=== PATIENT | female | born 2000 | race Caucasian/White ===

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

== ENCOUNTER 2019-06-27 17:38 | Inpatient (IN) | payer OTHER ==
[~2019-06-27] VITALS: Ht 155 cm; Wt 65.0 kg
[~2019-06-27 17:38] MED LIST: DSS100 PO; FERR-89 PO; IBUP100O28 PO; PNV11TAB PO
[2019-06-27] MEDS ORDERED: OXYTOCIN 30 UNITS/LACT RINGERS 500 ML IV ONE ×2 (17:40→23:14)
[2019-06-27] MEDS ORDERED: RINGERS SOLUTION,LACTATED 1,000 ML IV PRN (17:40)
[2019-06-27] MEDS ORDERED: CITRIC ACID/SODIUM CITRATE 30 ML SOLUTION UDCUP PO PRN (17:45)
[2019-06-27] MEDS ORDERED: FentaNYL CITRATE-PF 100 MCG/2 ML VIAL IVP PRN (17:45)
[2019-06-27] MEDS ORDERED: AMPICILLIN SODIUM 2 GM/NS 100 ML IV ONE (17:45)
[2019-06-27] MEDS ORDERED: METOCLOPRAMIDE HCL 5 MG/ML 2 ML VIAL IVP PRN (17:45)
[2019-06-27 17:49] VITALS: BP 116/67
[2019-06-27] MEDS: RINGERS SOLUTION,LACTATED 1,000 ML IV SCH ×4 (18:46→19:56)
[2019-06-27 18:57] LABS: BASOPHILS % (AUTO) 0.2 % (0.0-2.0); EOSINOPHILS % (AUTO) 0.2 % (1.0-6.0); HEMATOCRIT 29.5 % (36-46); HEMOGLOBIN 9.7 g/dL (12.0-16.0); LYMPHOCYTES # (AUTO) 1.6 K/uL (1.0-4.8); LYMPHOCYTES % (AUTO) 23.9 % (22.0-44.0); MEAN CORPUSCULAR HEMOGLOBIN 25.6 pg (26.0-34.0); MEAN CORPUSCULAR HGB CONC 32.8 G/dL (31.0-37.0); MEAN CORPUSCULAR VOLUME 78 fL (80-100); MONOCYTES # (AUTO) 0.8 K/uL (0.1-1.0); MONOCYTES % (AUTO) 12.6 % (2.0-9.0); NEUTROPHILS # (AUTO) 4.2 K/uL (1.8-7.7); NEUTROPHILS % (AUTO) 63.1 % (40.0-70.0); PLATELET COUNT (AUTO) 197 K/uL (150-450); RED BLOOD CELL COUNT(AUTO) 3.78 MIL/uL (4.00-5.20)
[2019-06-27] MEDS ORDERED: INFLUENZA VIRUS VACCINE QVS 2019-20 (3YR+)/PF 60 MCG/0.5 ML SYRINGE IM ONE (19:15)
[2019-06-27] MEDS ORDERED: OXYGEN THERAPY IH SCH (20:00)
[2019-06-27] MEDS ORDERED: ROPIVACAINE HCL/PF 0.2% 100 ML ED ONE (20:07)
[2019-06-27 20:13] LABS: RAPID PLASMA REAGIN NONREACTIVE (NONREACTIVE)
[2019-06-27 20:25] LABS: RUBELLA SCREEN (IGG) IMMUNE (IMMUNE)
[2019-06-27] MEDS ORDERED: ROPIVACAINE HCL/PF 0.2% 100 ML ED PRN (20:42)
[2019-06-27] MEDS ORDERED: NALBUPHINE HCL 10 MG/ML VIAL IVP PRN (20:45)
[2019-06-27] MEDS ORDERED: ONDANSETRON HCL 4 MG/2 ML VIAL IVP PRN (20:45)
[2019-06-27] MEDS ORDERED: DiphenhydrAMINE HCL 50 MG/ML VIAL IVP PRN (20:45)
[2019-06-27] MEDS: AMPICILLIN SODIUM 1 GM/NS 50 ML IV SCH (23:03)
[2019-06-28] MEDS: AMPICILLIN SODIUM 1 GM/NS 50 ML IV SCH (03:15)
[2019-06-28] MEDS: RINGERS SOLUTION,LACTATED 1,000 ML IV SCH (03:23)
[2019-06-28] MEDS ORDERED: RINGERS SOLUTION,LACTATED 1,000 ML IV ONE (05:27)
[2019-06-28] MEDS ORDERED: BENZOCAINE 20%/MENTHOL 56 GM SPRAY CANISTER TP PRN (05:30)
[2019-06-28] MEDS ORDERED: OxyCODONE HCL/ACETAMINOPHEN 5-325 MG TABLET PO PRN ×2 (05:30)
[2019-06-28] MEDS ORDERED: GLYCERIN/WITCH HAZEL LEAF 40 PADS JAR TP PRN (05:30)
[2019-06-28] MEDS ORDERED: IBUPROFEN 600 MG TABLET PO PRN (05:30)
[2019-06-28] MEDS ORDERED: LANOLIN 7 GM OINTMENT TP PRN (05:30)
[2019-06-28] MEDS ORDERED: MEASLES/MUMPS/RUBELLA VACCINE, LIVE 0.5 ML/VIAL SQ ONE (05:30)
[2019-06-28] MEDS: MAGNESIUM HYDROXIDE SUSPENSION 30 ML UDCUP PO SCH ×2 (10:37→22:31)
[2019-06-29] MEDS: MAGNESIUM HYDROXIDE SUSPENSION 30 ML UDCUP PO SCH (09:00)
[2019-06-29] MEDS ORDERED: IBUP-2071 PO (10:45)
[2019-06-29] MEDS ORDERED: DOCU-275 PO (10:45)
[2019-06-29] MEDS ORDERED: FERR-89 PO (10:46)
== END 2019-06-29 11:50 | disposition home or self-care (01) | DRG 807 ==
LOC: 4S 17:40 → OBSVTOIN 17:40
PROVIDERS: ADMIT Obstetrics & Gynecology; ATTEND Obstetrics & Gynecology
PROC: 10E0XZZ Delivery of Products of Conception, External Approach (ICD-10-PCS; principal; 2019-06-28)
PROC: 3E0R3BZ Introduction of Anesthetic Agent into Spinal Canal, Percutaneous Approach (ICD-10-PCS; 2019-06-28)
PROC: 00HU33Z Insertion of Infusion Device into Spinal Canal, Percutaneous Approach (ICD-10-PCS; 2019-06-28)
DX: O80 Encounter for full-term uncomplicated delivery (principal); Z37.0 Single live birth; Z3A.40 40 weeks gestation of pregnancy
CPT/HCPCS: 76811; 80307; 86592; 86762; 86850; 86900; 86901; 87340; 90686; J0290; J2590; J2795; J7120